=== PATIENT | female | born 1955 | race African-American/Black ===

== ENCOUNTER 2019-06-22 12:26 | Outpatient (CLI) | payer MEDICARE, MEDICAID ==
--- NOTE | 2019-06-27 15:57 | MMO ---
Bilateral MAMMO Bilat Screen [facility]. CLINICAL HISTORY: Patient is 63 years old and is seen for screening. The patient has no family history of breast cancer. The patient has no personal history of cancer. VIEWS: The views performed were: bilateral craniocaudal; bilateral craniocaudal with tomosynthesis; bilateral mediolateral oblique; and bilateral mediolateral oblique with tomosynthesis. FILMS COMPARED: The present examination has been compared to prior imaging studies performed at [facility] on 08/15/2008, 07/13/2012 and 02/04/2016. This study has been interpreted with the assistance of computer-aided detection. MAMMOGRAM FINDINGS: There are scattered fibroglandular densities. There are stable benign appearing calcifications seen in both breasts. There are no suspicious masses, suspicious calcifications, or new areas of architectural distortion. IMPRESSION: THERE IS NO MAMMOGRAPHIC EVIDENCE OF MALIGNANCY. A ROUTINE FOLLOW-UP MAMMOGRAM IN 1 YEAR IS RECOMMENDED. THE RESULTS OF THIS EXAM WERE SENT TO THE PATIENT. ACR BI-RADS Category 2 - Benign finding MAMMOGRAPHY NOTE: 1. A negative mammogram report should not delay a biopsy if a dominant of clinically suspicious mass is present. 2. Approximately 10% to 15% of breast cancers are not detected by mammography. 3. Adenosis and dense breasts may obscure an underlying neoplasm. Reported by: PEPE KENNEY MD Electonically Signed: [id number]
== END 2019-06-22 12:27 | disposition home or self-care (01) ==
LOC: BICMAMMO 12:26
PROVIDERS: ATTEND Family Medicine
DX: Z12.31 Encounter for screening mammogram for malignant neoplasm of breast (principal)
CPT/HCPCS: 77063; 77067

== ENCOUNTER 2020-02-14 12:25 | Outpatient (CLI) | payer MEDICARE, MEDICAID ==
[2020-02-14] MEDS ORDERED: Lidocaine 1% PF 10 ML AMP ONE (12:47)
[2020-02-14] MEDS ORDERED: Gadobenate Dimeglumine 529 MG/1 ML (20ML VIAL) ONE (12:47)
[2020-02-14] MEDS ORDERED: Iopamidol 300 61% 50 ML VIAL FS ONE (12:47)
[2020-02-14] MEDS ORDERED: EPINEPHrine 1 MG/ML AMP ONE (12:47)
--- NOTE | 2020-02-14 15:32 | RAD ---
EXAM: XR Shoulder Rt Arthrogram PROVIDED CLINICAL HISTORY: Torn rotator cuff right shoulder. Right shoulder pain COMPARISON: None TECHNIQUE: After informed consent was obtained, the patient was placed on the fluoroscopy table in the supine po sition. The right shoulder was placed in external rotation. An area overlying the superior one third right glenohumeral joint was marked, and the area was meticulously prepped and draped in usual sterile fashion. Skin and subcutaneous tissues were infiltrated with buffered 1% lidocaine for local anesthesia. A 22- gauge spinal needle was advanced into the right glenohumeral joint. Small amount of contrast was injected demonstrating free flow of contrast from the tip of the needle. As a result, approximately 1 1 mL of a mixture of Omnipaque 300, gadolinium, 1% lidocaine, and small amount of epinephrine mixed in sterile saline was instilled into the right glenohumeral joint. The needle was removed, and hemostasis was achieved with direct pressure. Dry sterile dressing was pl aced at puncture site. The patient tolerated the procedure well and without immediate complication. IMPRESSION: 1. Findings suggestive of a massive rotator cuff tear. However, please see MRI right shoulder perform ed after this examination for further details. 2. Technically successful right shoulder arthrogram.
--- NOTE | 2020-02-14 16:02 | MRI ---
MR ARTHROGRAM OF THE RIGHT SHOULDER: 02/14/20 INDICATION: History of right rotator cuff tear. TECHNIQUE: Multiple MR imaged areas were obtained after intra-articular administration of dilute gadolinium solu tion, Please see the arthrogram for details concerning injection technique. FINDINGS: There is a massive rotator cuff tear involving the supraspinatus and infraspinatus with retraction of the level of the glenohumeral joint. There is prominent degenerative tearing involving the superior glenoid labrum with a partial thickness split tear involving the proximal long head of the biceps ten don. There is mild to moderate glenohumeral osteoarthrosis with small marginal osteophytes affecting the humeral head. There is moderate muscular atrophy of the supraspinatus and infraspinatus. There is moderate AC joint osteoarthrosis. With some communication of the inferior aspect of the AC joint wi th the glenohumeral space. IMPRESSION: 1. Massive rotator cuff tear with moderate supraspinatus and infraspinatus muscular atrophy. 2. Prominent degenerative tearing of the superior glenoid labrum and biceps anchor with partial thickness split tear of the intra-articular longhead of the biceps tendon. 3. Moderate AC and mild to moderate glenohumeral joint osteoarthrosis. POS: BH
== END 2020-02-14 12:26 | disposition home or self-care (01) ==
LOC: RAD 12:25
PROVIDERS: ATTEND Orthopaedic Surgery
DX: M75.101 Unspecified rotator cuff tear or rupture of right shoulder, not specified as traumatic (principal); M19.011 Primary osteoarthritis, right shoulder; S43.431A Superior glenoid labrum lesion of right shoulder, initial encounter
CPT/HCPCS: 23350; A9577; J0171; J2001; Q9967

== ENCOUNTER 2020-02-28 08:59 | Outpatient (CLI) | payer MEDICARE, MEDICAID, OTHER ==
[2020-02-28 14:21] LABS: Hemoglobin 12.6 g/dL (12.0-16.0); Mean Corpuscular HGB CONC 31.4 g/dL (32.0-36.0); Mean Corpuscular Hemoglobin 27.5 pg (27.0-31.0); Mean Corpuscular Volume 87.6 fL (78.0-98.0); Mean Platelet Volume 9.5 fL (7.4-10.4); Platelet Count 252 thou/uL (130-400); Red Blood Cell (RBC) Count 4.58 mill/uL (4.20-5.40); White Blood Cell (WBC) Count 4.4 thou/uL (4.8-10.8)
[2020-02-28 14:45] LABS: Anion Gap 13 mmol/L (10-20); BUN (Urea Nitrogen) 10 mg/dL (9.8-20.1); Calc. Creatinine Clearance 0 mL/min (70-130); Calcium 9.3 mg/dL (7.8-10.44); Carbon Dioxide 24 mmol/L (23-31); Chloride 107 mmol/L (98-107); Estimated GFR-MDRD 85; Glucose 104 mg/dL (80-115); Sodium 140 mmol/L (136-145)
[2020-02-29 12:45] LABS: SARS-CoV-2 MS2 Positive; SARS-CoV-2 N Gene Negative; SARS-CoV-2 S Gene Negative; SARS-CoV-2 orf1ab Negative
== END 2020-02-28 09:00 | disposition home or self-care (01) ==
LOC: LABBT 08:59
PROVIDERS: ATTEND Orthopaedic Surgery
DX: Z01.818 Encounter for other preprocedural examination (principal); Z11.59 Encounter for screening for other viral diseases; M75.101 Unspecified rotator cuff tear or rupture of right shoulder, not specified as traumatic; M19.019 Primary osteoarthritis, unspecified shoulder
CPT/HCPCS: 80048; 85027; U0003; 87635; 93005; 93010

== ENCOUNTER 2020-03-01 09:27 | Day surgery (SDC) | payer MEDICARE, MEDICAID ==
[2020-02-27 13:19] VITALS: BMI 32.8
[2020-03-01] MEDS ORDERED: Fentanyl 100 MCG/2 ML VIAL ONE ×3 (10:43→10:59)
[2020-03-01] MEDS ORDERED: Midazolam HCl 2 mg/2 ml Vial ONE ×2 (10:43→10:59)
[2020-03-01] MEDS ORDERED: Phenylephrine 10 MG/ML VIAL ONE (10:45)
[2020-03-01] MEDS ORDERED: Ropivacaine 0.2% 550 ML 550 ML NERVE BLCK SCH (11:52)
[2020-03-01] MEDS ORDERED: Ondansetron PF 4 MG/2 ML Vial IVP PRN (11:52)
[2020-03-01] MEDS ORDERED: Zolpidem Tartrate 5 MG TAB PO PRN (11:52)
[2020-03-01] MEDS ORDERED: traMADol HCl 50 MG TAB PO PRN ×2 (11:52)
[2020-03-01] MEDS ORDERED: HYDROcodone/Acetaminophen 5/325 mg Tablet PO PRN ×2 (11:52)
[2020-03-01] MEDS ORDERED: Promethazine HCl 25 MG/ML VIAL IM PRN (11:52)
[2020-03-01] MEDS ORDERED: Bupivacaine HCl 0.5%/Epinephrine 1:200,000/PF 30 ml Vial ONE (12:29)
[2020-03-01] MEDS ORDERED: SUGAMMADEX SODIUM 200 MG/2 ML VIAL ONE (14:17)
[2020-03-01] MEDS ORDERED: hydrALAZINE 20 MG/ML VIAL ONE (15:05)
[2020-03-01] MEDS ORDERED: Esmolol 100 MG/10 ML VIAL ONE (15:55)
[2020-03-01] MEDS ORDERED: Dexamethasone 20 MG/5 ML VIAL ONE (15:55)
[2020-03-01] MEDS ORDERED: Rocuronium Bromide 10 MG/ML (10ML VIAL) ONE (15:55)
[2020-03-01] MEDS ORDERED: Ropivacaine 0.2% HCl/PF (40 MG/20 ML VIAL) ONE (15:55)
[2020-03-01] MEDS ORDERED: Glycopyrrolate 0.2 MG/ML 5 ML SYRINGE ONE (15:55)
[2020-03-01] MEDS ORDERED: PROPOFOL 200 MG/20 ML VIAL ONE (15:55)
[2020-03-01] MEDS ORDERED: Ondansetron PF 4 MG/2 ML Vial ONE (15:55)
[2020-03-01] MEDS ORDERED: Lidocaine 1% PF 5 ML VIAL ONE (15:55)
[2020-03-01] MEDS ORDERED: Ropivacaine 0.5% HCl/PF (150 MG/30 ML VIAL) ONE (15:55)
--- NOTE | 2020-03-01 20:17 | OP ---
DATE OF PROCEDURE: 03/01/2020 PREOPERATIVE DIAGNOSES: Right shoulder with superior labral tear, severe biceps tendinitis, large rotator cuff tear and acromioclavicular arthritis. POSTOPERATIVE DIAGNOSES: Right shoulder with superior labral tear, severe biceps tendinitis, large rotator cuff tear and acromioclavicular arthritis. PROCEDURES PERFORMED: Arthroscopy of the right shoulder with superior labral repair, subacromial decompression, rotator cuff repair, excision of distal clavicle, and open biceps tenodesis. ANESTHESIA: General. DESCRIPTION OF PROCEDURE: The patient was given preoperative IV antibiotics, taken to the operating room. She had a supraclavicular block performed by prior to going to the operating room. Once in the operating room, the patient was placed in supine position, satisfactory general anesthesia was performed. She was then placed in the left lateral decubitus position. All bony prominences were well padded. The right upper extremity was placed in 15 pounds of traction. The right shoulder area was sterilely prepped and draped in usual fashion. The shoulder was scoped through the usual posterior, anterior, lateral, and superolateral portals. Upon entering the shoulder joint, the patient had significant synovitis. There were some loose cartilaginous bodies that were removed with the shaver. There was severe biceps tendinitis, and the biceps was cut where it attaches to the superior labrum. Superior labrum was torn and was repaired using Arthrex 2.9 PushLock anchors with #2 FiberWire. Two of the anchors were used to repair the superior labrum. The subacromial space was then entered. The patient was noted to have a very large rotator cuff tear. The soft tissue on the undersurface of the acromion was removed with a 90-degree ArthroWand, and the subacromial region was opened up by bearing the undersurface of the acromion and removing bursal tissue. The acromioclavicular joint was identified, and a high-speed leatha was used to remove the distal aspect of the clavicle. The rotator cuff was then noted to be mobile and could be repaired primarily, and the rotator cuff was repaired using two medial and two lateral PushLock 4.75 Arthrex anchors with FiberTape. This provided excellent repair of the rotator cuff. A 1 inch incision was then made over the bicipital groove. The deltoid muscle was bluntly divided. The bicipital groove was identified, and the biceps tendon was retrieved, sutured. A 7.5 mm hole was then drilled into the bicipital groove, and a 7 mm Arthrex biceps tenodesis screw was used to perform the bicipital tenodesis. During procedure, all the wounds were copiously irrigated. They were then closed using 0 Vicryl for the tissue as well as the fascia over the deltoid muscle, and skin was all closed with 3-0 Rapide. Sterile dressing was applied. The patient was awakened, extubated, and transferred to recovery room in stable condition. ESTIMATED BLOOD LOSS: Minimal. COMPLICATIONS: None. DISCHARGE MEDICATION: Tramadol 50 mg one every 4 to 6 hours as needed for pain, #60 with one refill. The patient was placed in a shoulder immobilizer, which she is to keep on and she will follow up in an office with me next week. Job ID: [id number]
== END 2020-03-01 17:10 | disposition home or self-care (01) ==
LOC: SDC 09:27
PROVIDERS: ATTEND Orthopaedic Surgery
PROC: 0PB94ZZ Excision of Right Clavicle, Percutaneous Endoscopic Approach (ICD-10-PCS; principal; 2020-03-01)
PROC: 0LQ14ZZ Repair Right Shoulder Tendon, Percutaneous Endoscopic Approach (ICD-10-PCS; 2020-03-01)
PROC: 0RNJ4ZZ Release Right Shoulder Joint, Percutaneous Endoscopic Approach (ICD-10-PCS; 2020-03-01)
PROC: 0LS30ZZ Reposition Right Upper Arm Tendon, Open Approach (ICD-10-PCS; 2020-03-01)
PROC: 0RHJ04Z Insertion of Internal Fixation Device into Right Shoulder Joint, Open Approach (ICD-10-PCS; 2020-03-01)
PROC: 0RQJ4ZZ Repair Right Shoulder Joint, Percutaneous Endoscopic Approach (ICD-10-PCS; 2020-03-01)
PROC: 3E0T3BZ Introduction of Anesthetic Agent into Peripheral Nerves and Plexi, Percutaneous Approach (ICD-10-PCS; 2020-03-01)
DX: S43.431A Superior glenoid labrum lesion of right shoulder, initial encounter (principal); M75.101 Unspecified rotator cuff tear or rupture of right shoulder, not specified as traumatic; M75.22 Bicipital tendinitis, left shoulder; M19.011 Primary osteoarthritis, right shoulder; S43.491A Other sprain of right shoulder joint, initial encounter; M65.811 Other synovitis and tenosynovitis, right shoulder; G89.18 Other acute postprocedural pain; I10 Essential (primary) hypertension
CPT/HCPCS: 23430; 29806; 29824; 29826; 29827; 64416; A4306; C1713 ×2; J0360; J0670; J0690; J1100; J2001; J2250; J2370; J2405; J2704; J2795; J3010

== ENCOUNTER 2022-09-05 14:12 | Outpatient (CLI) | payer OTHER, MEDICAID ==
[2022-09-05 15:01] LABS: Hemoglobin 12.4 g/dL (12.0-15.5); Mean Corpuscular HGB CONC 31.7 g/dL (32.0-36.0); Mean Corpuscular Hemoglobin 26.8 pg (27.0-33.0); Mean Corpuscular Volume 84.6 fl (81.6-98.3); Mean Platelet Volume 10.5 fl (7.4-10.4); Platelet Count 273 10x3/uL (150-450); RBC Distribution Width 13.9 % (11.5-14.5); Red Blood Cell (RBC) Count 4.62 10x6/uL (3.90-5.03); White Blood Cell (WBC) Count 5.2 10x3/uL (3.5-10.5)
[2022-09-05 15:20] LABS: Anion Gap 14 mmol/L (10-20); BUN (Urea Nitrogen) 10 mg/dL (9.8-20.1); Calc. Creatinine Clearance 0 mL/min (70-130); Calcium 10.2 mg/dL (7.8-10.44); Carbon Dioxide 27 mmol/L (23-31); Chloride 106 mmol/L (98-107); Estimated GFR 66; Glucose 120 mg/dL (80-115); Potassium 3.9 mmol/L (3.5-5.1); Sodium 143 mmol/L (136-145)
== END 2022-09-05 14:13 | disposition home or self-care (01) ==
LOC: LABBT 14:12
PROVIDERS: ATTEND Family Medicine
DX: Z01.818 Encounter for other preprocedural examination (principal); S83.242A Other tear of medial meniscus, current injury, left knee, initial encounter; S83.282A Other tear of lateral meniscus, current injury, left knee, initial encounter
CPT/HCPCS: 80048; 85027; 93005; 93010

== ENCOUNTER 2022-09-09 07:46 | Day surgery (SDC) | payer OTHER, MEDICAID ==
[2022-09-04 08:17] VITALS: BMI 32.8
[2022-09-09] MEDS ORDERED: Sodium Chloride 0.9% 100 ML ONE (09:00)
[2022-09-09] MEDS ORDERED: CEFAZOLIN 2 GM VIAL ONE (09:00)
[2022-09-09] MEDS ORDERED: Ondansetron PF 4 MG/2 ML Vial ONE (10:39)
[2022-09-09] MEDS ORDERED: Ketorolac Tromethamine 30 MG/ML VIAL ONE (10:39)
[2022-09-09] MEDS ORDERED: PROPOFOL 200 MG/20 ML VIAL ONE (10:39)
[2022-09-09] MEDS ORDERED: Bupivacaine PF 0.5% 30 ML VIAL ONE (10:41)
[2022-09-09] MEDS ORDERED: EPINEPHrine 1 MG/ML AMP ONE (10:41)
[2022-09-09] MEDS ORDERED: Bupivacaine 0.25% HCL 30 ML VIAL ONE (10:41)
[2022-09-09] MEDS ORDERED: Fentanyl 250 MCG/5 ML VIAL ONE (10:49)
[2022-09-09] MEDS ORDERED: traMADol HCl 50 MG TAB ONE (13:47)
== END 2022-09-09 14:20 | disposition home or self-care (01) ==
LOC: SDC 07:46
PROVIDERS: ATTEND Orthopaedic Surgery
PROC: 0SBD4ZZ Excision of Left Knee Joint, Percutaneous Endoscopic Approach (ICD-10-PCS; principal; 2022-09-09)
PROC: 0SBD4ZZ Excision of Left Knee Joint, Percutaneous Endoscopic Approach (ICD-10-PCS; 2022-09-09)
PROC: 0SBD4ZZ Excision of Left Knee Joint, Percutaneous Endoscopic Approach (ICD-10-PCS; 2022-09-09)
DX: S83.232A Complex tear of medial meniscus, current injury, left knee, initial encounter (principal); S83.272A Complex tear of lateral meniscus, current injury, left knee, initial encounter; M65.88 Other synovitis and tenosynovitis, other site; M17.12 Unilateral primary osteoarthritis, left knee; I10 Essential (primary) hypertension; Z87.891 Personal history of nicotine dependence; Z79.82 Long term (current) use of aspirin; Z79.899 Other long term (current) drug therapy; Z88.8 Allergy status to other drugs, medicaments and biological substances; Z96.641 Presence of right artificial hip joint; Z96.651 Presence of right artificial knee joint
CPT/HCPCS: J0171; J1885; J2405; J2704; J3010; J3490; S0020